=== PATIENT | male | born 2000 | race Caucasian/White ===

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

== ENCOUNTER → 2020-10-11 | Outpatient (CLI) | payer BC ==
--- NOTE | 2020-10-11 13:24 | US ---
EXAMINATION TYPE: US liver DATE OF EXAM: 10/11/2020 COMPARISON: NONE CLINICAL HISTORY: R74.01 ELEVATED LIVER ENZYMES. EXAM MEASUREMENTS: Liver Length: 15.1 cm Gallbladder Wall: 0.2 cm CBD: 0.3 cm Right Kidney: 11.0 x 4.4 x 5.4 cm Pancreas: The tail of the pancreas is not well-visualized due to overlying bowel gas. Liver: wnl Gallbladder: wnl Evidence for sonographic Piña's sign: no CBD: wnl Right Kidney: wnl IMPRESSION: 1. The tail of the pancreas is not well-visualized due to overlying bowel gas. Otherwise unremarkable sonographic study of the abdomen.
== END | disposition home or self-care (01) ==
LOC: RADUSWWP 07:07
PROVIDERS: ATTEND Family Medicine
DX: E74.01 von Gierke disease (principal)
CPT/HCPCS: 76705

== ENCOUNTER 2022-05-11 14:50 | Emergency (ER) | payer BC ==
[2022-05-11] MEDS ORDERED: IBUPROFEN 600 MG TAB PO STA (14:53)
[2022-05-11] MEDS ORDERED: DIPH,PERTUS(ACELL)TETVAC-LF 0.5 ML VIAL IM ONE (14:53)
[2022-05-11] MEDS ORDERED: ACETAMINOPHEN TAB 500 MG TAB PO STA (14:53)
[2022-05-11] MEDS ORDERED: AMOXIC-POT CLAV 875-125MG 1 EACH TAB PO STA (14:57)
--- NOTE | 2022-05-11 15:07 | XR ---
EXAMINATION TYPE: XR forearm LT DATE OF EXAM: 05/11/2022 CLINICAL HISTORY: Dog bite injury with pain TECHNIQUE: Two views of the left forearm are obtained. COMPARISON: None. FINDINGS: There is no acute fracture or dislocation seen in the left radius or ulna. The left elbow and wrist joints appear within normal limits. There is subcutaneous gas along the ulnar soft tissue distal forearm with some soft tissue swelling also seen at this level and along the volar surface. IMPRESSION: As above. Soft tissue penetrating injury. No bony destruction seen.
--- NOTE | 2022-05-11 15:09 | XR ---
EXAMINATION TYPE: XR hand complete LT DATE OF EXAM: 05/11/2022 CLINICAL HISTORY: Trauma injury with pain TECHNIQUE: Frontal, lateral and oblique images of the left hand are obtained. COMPARISON: None. FINDINGS: There is no acute fracture/dislocation evident in the left hand. The joint spaces in the l eft hand appear within normal limits. Subcutaneous gas along the ulnar soft tissue in the distal fore arm is redemonstrated system with penetrating trauma injury at this level. There is some subtle subcu taneous air between the fourth and fifth metacarpals on frontal projection less well seen on addition al views. IMPRESSION: Additional soft tissue penetrating injury near the fourth and fifth metacarpals. No suspi cious bony destruction.
[2022-05-11 15:26] VITALS: RESP 18
[2022-05-11 15:28] VITALS: TEMP 98.1
--- NOTE | 2022-05-11 16:07 | ED ---
Animal Bite HPI - General Chief Complaint: Animal Bite Stated Complaint: left arm injury Time Seen by Provider: 05/11/22 15:15 Source: patient Mode of arrival: ambulatory Limitations: no limitations - History of Present Illness Initial Comments: Patient is a 21-year-old male presenting with chief complaint of multiple scratches on the left arm from his dogs. Patient was trying to separate his dogs when they were jumping on him and causing scratches and skin tears. There are several small lacerations/puncture is the left forearm. No numbness, tingl ing, weakness. Patient's tetanus will be updated here in the ER. - Related Data Previous Rx's Medication Instructions Recorded Amoxic-Pot Clav 875-125Mg 1 tab PO Q12HR 10 Days #20 tab 05/11/22 [Augmentin 875-125] Allergies Allergy/AdvReac Type Severity Reaction Status Date / Time No Known Allergies Allergy Verified 05/11/22 15:26 Review of Systems ROS Statement: Those systems with pertinent positive or pertinent negative responses have been documented in the HPI. ROS Other: All systems not noted in ROS Statement are negative. Past Medical History Past Medical History: No Reported History History of Any Multi-Drug Resistant Organisms: None Reported Past Surgical History: No Surgical Hx Reported Past Psychological History: No Psychological Hx Reported Smoking Status: Never smoker Past Alcohol Use History: Occasional Past Drug Use History: None Reported General Exam Limitations: no limitations General appearance: alert, in no apparent distress Head exam: Present: atraumatic, normocephalic, normal inspection Eye exam: Present: normal appearance Neck exam: Present: normal inspection Neurological exam: Present: alert, oriented X3, CN II-XII intact Psychiatric exam: Present: normal affect, normal mood Expanded Type of lesion: Present: laceration (Several small lacerations/punctures to the left forearm) Course Vital Signs 05/11/22 05/11/22 15:22 16:27 Temperature 98.1 F 98.1 F Pulse Rate 85 75 Respiratory 18 18 Rate Blood Pressure 130/79 135/75 O2 Sat by Pulse 99 97 Oximetry Procedures - Laceration Laceration #1 Consent Obtained: verbal consent Indication: laceration Site: upper extremity (Forearm) Description: linear Depth: simple, single layer Anesthetic Used: lidocaine 1%, without epi Anesthesia Technique: local infiltration Pre-repair: wound explored, irrigated extensively Type of Sutures: nylon Size of Sutures: 4-0 Number of Sutures: 5 Technique: simple, interrupted Patient Tolerated Procedure: well Medical Decision Making - Medical Decision Making Patient is a 21-year-old male presenting with chief complaint of dog scratches to the left forearm. On physical examination he is neurovascularly intact, no foreign bodies felt on palpation. X-ray shows no evidence of foreign bodies. Patient's tetanus is updated here in the ER. Patient has had several small lacerations to the forearm, approximately 5 sutures were used to help approximate but not fully close to prevent infection. Wounds were irrigated thoroughly with sterile water prior to repair. Patient is placed on Augmentin 875 twice a day. Educated on wound care. Follow-up with PCP. Report back to ER with any new or worsening symptoms. Discussed return parameters and answered all questions. Patient conveyed verbal understanding and agreed to the plan. I discussed this case in detail with my attending Dr. Davis Disposition Clinical Impression: Dog bite Disposition: HOME SELF-CARE Condition: Good Instructions (If sedation given, give patient instructions): Animal Bite (ED) Additional Instructions: Report back to ER if any new or worsening symptoms. Keep the wounds clean, dry, covered. Monitor for signs of infection. Prescriptions: Amoxic-Pot Clav 875-125Mg [Augmentin 875-125] 1 tab PO Q12HR 10 Days #20 tab Is patient prescribed a controlled substance at d/c from ED?: No Referrals: Schuyler Drake DO [Primary Care Provider] - 1-2 days Time of Disposition: 16:05
[2022-05-11 16:29] VITALS: BP 135/75; PULSE 75
== END 2022-05-11 16:29 | disposition home or self-care (01) ==
LOC: EC 14:50
DX: S51.852A Open bite of left forearm, initial encounter (principal); Z23 Encounter for immunization; W54.0XXA Bitten by dog, initial encounter
CPT/HCPCS: 12001; 90471; 90715; 99283

== ENCOUNTER → 2023-05-13 | Outpatient (CLI) | payer BC ==
--- NOTE | 2023-05-13 15:03 | XR ---
3 view lumbar spine. DATE: 05/13/2023. COMPARISON: None available. CLINICAL HISTORY: Lower back pain. FINDINGS: The vertebral bodies are well aligned without evidence of fracture, subluxation or dislocation. The vertebral body heights and disc spaces are maintained. IMPRESSION: No fracture, subluxation or dislocation no significant degenerative changes.
== END | disposition home or self-care (01) ==
LOC: RADXRMAIN 14:05
PROVIDERS: ATTEND Nurse Practitioner Gerontology
DX: M54.50 Low back pain, unspecified (principal)
CPT/HCPCS: 72100